=== PATIENT | male | born 1995 | race Caucasian/White ===

== ENCOUNTER 2020-08-25 12:51 | Emergency (ER) | payer OTHER ==
[2020-08-25 13:16] LABS: HEMOGLOBIN 15.2 gm/dl (14.0-17.5); RED BLOOD COUNT 5.19 M/UL (4.20-5.50); WHITE BLOOD COUNT 11.7 K/UL (4.5-11.0)
[2020-08-25 13:35] LABS: BUN/CREATININE RATIO 16 (0-10)
[2020-08-25] MEDS ORDERED: PROTONIX40 MG PO (15:23)
== END 2020-08-25 15:53 | disposition home or self-care (01) ==
LOC: ER1 12:51
PROVIDERS: Emergency Medicine
DX: R10.9 Unspecified abdominal pain (principal); R11.2 Nausea with vomiting, unspecified
CPT/HCPCS: 80053; 81001; 83690; 85025; 96374; 96375; 99284; Q9967